=== PATIENT | female | born 1970 | race African-American/Black ===

== ENCOUNTER 2016-12-22 11:19 | Emergency (ER) | payer BC ==
[2016-12-22] MEDS ORDERED: KETOROLAC TROMETHAMINE 60 MG/2 ML SDV IM ONE (11:39)
[2016-12-22] MEDS ORDERED: HYDROCODONE/ACETAMINOPHEN 5-325 MG TABLET PO ONE (11:39)
[2016-12-22] MEDS ORDERED: ONDANSETRON 4 MG TAB.RAPDIS PO ONE (11:40)
[2016-12-22] MEDS ORDERED: KETOROLAC TROMETHAMINE INJ/PF 30 MG/1 ML SDV IV ONE (11:41)
[2016-12-22] MEDS ORDERED: MORPHINE SULFATE 10 MG/ML INJ IV ONE (11:41)
[2016-12-22] MEDS ORDERED: NORMAL SALINE 1000 ML 1,000 ML IV ONE (11:42)
--- NOTE | 2016-12-22 11:43 | ER Document Report ---
ED Medical Screen (RME) - General Chief Complaint: Possible Kidney Stone Stated Complaint: R SIDE PAIN Time Seen by Provider: 12/22/16 11:35 - HPI Patient complains to provider of: Flank pain this morning - Related Data Allergies/Adverse Reactions: No Known Allergies Allergy (Unverified 12/22/16 11:23) Past Medical History Renal/ Medical History: Denies: Hx Peritoneal Dialysis Review of Systems - Review of Systems Genitourinary: Flank pain Physical Exam - Vital signs Vitals: Temp Pulse Resp BP Pulse Ox 97.9 F 75 16 132/93 H 100 12/22/16 11:23 12/22/16 11:23 12/22/16 11:23 12/22/16 11:23 12/22/16 11:23 - Abdominal Inspection: Normal Bowel sounds: Normal Tenderness: Nontender Course - Vital Signs Vital signs: Temp Pulse Resp BP Pulse Ox 97.9 F 75 16 132/93 H 100 12/22/16 11:23 12/22/16 11:23 12/22/16 11:23 12/22/16 11:23 12/22/16 11:23
[2016-12-22 11:52] LABS: APPEARANCE,URINE SLIGHTLY-CLOUDY; BILIRUBIN,URINE NEGATIVE (NEGATIVE); GLUCOSE, URINE NEGATIVE (NEGATIVE); KETONES,URINE NEGATIVE (NEGATIVE); LEUKOCYTE ESTERASE,URINE NEGATIVE (NEGATIVE); NITRITE,URINE NEGATIVE (NEGATIVE); PROTEIN,URINE NEGATIVE (NEGATIVE); UROBILINOGEN,URINE NEGATIVE mg/dL (<2.0)
[2016-12-22 11:59] LABS: RBC,URINE 30-50 /HPF
--- NOTE | 2016-12-22 12:15 | ER Document Report ---
ED GI/ - General Mode of Arrival: Ambulatory Information source: Patient <ROBER CLAYTON - Last Filed: 12/22/16 12:57> <GAUTAM CASSIDY - Last Filed: 12/22/16 13:26> - General Chief Complaint: Possible Kidney Stone Stated Complaint: R SIDE PAIN Time Seen by Provider: 12/22/16 11:35 Notes: Patient is a 46-year-old female who presents to the emergency department today with complaints of right-sided abdominal pain. Patient describes the pain as consistently dull with sharp pains intermittently. Patient states the sharp pains are rather painful stating that "it was enough to make her leave taoism". Patient states she has never had a kidney stone before. Patient denies any vomiting. (FORREST,ROBER) - Related Data Allergies/Adverse Reactions: No Known Allergies Allergy (Unverified 12/22/16 11:23) Past Medical History - General Information source: Patient - Social History Smoking Status: Never Smoker Cigarette use (# per day): No Frequency of alcohol use: None Drug Abuse: None Lives with: Family Family History: Reviewed & Not Pertinent Patient has suicidal ideation: No Patient has homicidal ideation: No - Medical History Medical History: Negative Past Surgical History: Reports: Hx Cholecystectomy, Hx Hysterectomy - partial <ROBER CLAYTON - Last Filed: 12/22/16 12:57> Review of Systems - Review of Systems Constitutional: No symptoms reported EENT: No symptoms reported Cardiovascular: No symptoms reported Respiratory: No symptoms reported Gastrointestinal: Abdominal pain. denies: Vomiting Genitourinary: No symptoms reported Female Genitourinary: No symptoms reported Musculoskeletal: No symptoms reported Skin: No symptoms reported Hematologic/Lymphatic: No symptoms reported Neurological/Psychological: No symptoms reported -: Yes All other systems reviewed and negative <ROBER CLAYTON - Last Filed: 12/22/16 12:57> Physical Exam - Vital signs Interpretation: Normal - General General appearance: Appears well, Alert - HEENT Head: Normocephalic, Atraumatic Eyes: Normal Pupils: PERRL - Respiratory Respiratory status: No respiratory distress Chest status: Nontender Breath sounds: Normal Chest palpation: Normal - Cardiovascular Rhythm: Regular Heart sounds: Normal auscultation Murmur: No - Abdominal Inspection: Normal Distension: No distension Bowel sounds: Normal Tenderness: Tender - Right-sided tenderness to palpation, mild. No: Guarding, Rebound Organomegaly: No organomegaly - Back Back: Normal, Nontender - Extremities General upper extremity: Normal inspection, Nontender, Normal color, Normal ROM , Normal temperature General lower extremity: Normal inspection, Nontender, Normal color, Normal ROM , Normal temperature, Normal weight bearing. No: Medhat's sign - Neurological Neuro grossly intact: Yes Cognition: Normal Orientation: AAOx4 Lorna Coma Scale Eye Opening: Spontaneous Lorna Coma Scale Verbal: Oriented Lorna Coma Scale Motor: Obeys Commands [place] Coma Scale Total: 15 Speech: Normal Motor strength normal: LUE, RUE, LLE, RLE Sensory: Normal - Psychological Associated symptoms: Normal affect, Normal mood - Skin Skin Temperature: Warm Skin Moisture: Dry Skin Color: Normal <GAUTAM CASSIDY - Last Filed: 12/22/16 13:26> - Vital signs Vitals: Temp Pulse Resp BP Pulse Ox 97.9 F 75 16 132/93 H 100 12/22/16 11:23 12/22/16 11:23 12/22/16 11:23 12/22/16 11:23 12/22/16 11:23 Course - Laboratory Result Diagrams: 12/22/16 12:00 12/22/16 12:00 <ROBER CLAYTON - Last Filed: 12/22/16 12:57> - Laboratory Result Diagrams: 12/22/16 12:00 12/22/16 12:00 - Diagnostic Test Radiology reviewed: Reports reviewed <GAUTAM CASSIDY - Last Filed: 12/22/16 13:26> - Re-evaluation Re-evalutation: 12/22/16 13:25 Patient with small UVJ stone on CT. History is consistent with ureteral calculus. Patient will be discharged home with pain medication, nausea medication, and Flomax. No evidence for infection. Return if any worsening or concerning symptoms. Understands and agrees with plan. Stable for discharge. ( GAUTAM CASSIDY) - Vital Signs Vital signs: Temp Pulse Resp BP Pulse Ox 97.9 F 64 17 127/79 H 99 12/22/16 11:23 12/22/16 13:23 12/22/16 13:23 12/22/16 13:23 12/22/16 13:23 - Laboratory Laboratory results interpreted by me: 12/22/16 12/22/16 12/22/16 11:23 12:00 12:00 RBC 5.50 H MCV 78 L MCH 24.6 L MCHC 31.3 L RDW 15.5 H Chloride 109 H Urine Blood LARGE H Discharge <ROBER CLAYTON - Last Filed: 12/22/16 12:57> <GAUTAM CASSIDY - Last Filed: 12/22/16 13:26> - Discharge Clinical Impression: Ureteral stone Condition: Stable Disposition: HOME, SELF-CARE Instructions: Kidney Stone ([facility]) Prescriptions: Ondansetron [Zofran Odt 4 mg Tablet] 1 tab PO Q6HP PRN #15 tab.rapdis PRN Reason: For Nausea/Vomiting Oxycodone HCl/Acetaminophen [Percocet 5-325 mg Tablet] 1 - 2 tab PO Q4H PRN #15 tablet PRN Reason: Tamsulosin HCl [Flomax 0.4 mg Cap.sr] 0.4 mg PO DAILY #14 cap.sr.24h Referrals: SHANNAN FERRIS MD [Primary Care Provider] - Follow up as needed Scribe Attestation: 12/22/16 13:26 I personally performed the services described in the documentation, reviewed and edited the documentation which was dictated to the scribe in my presence, and it accurately records my words and actions. (GAUTAM CASSIDY)
--- NOTE | 2016-12-22 12:25 | RADIOLOGY REPORT (SQ) ---
EXAM DESCRIPTION: CT LTD RENAL STONE PROTOCOL ON COMPLETED DATE/TIME: 12/22/2016 11:58 am REASON FOR STUDY: right flank COMPARISON: None. TECHNIQUE: CT scan of the abdomen and pelvis performed without intravenous or oral contrast. Images reviewed with lung, soft tissue, and bone windows. Reconstructed coronal and sagittal MPR images revi ewed. All images stored on PACS. All CT scanners at this facility use dose modulation, iterative reconstruction, and/or weight based d osing when appropriate to reduce radiation dose to as low as reasonably achievable (ALARA). [facility]: Dose Right [facility]: CareDose [facility]: Dose Right [facility]: Teradose 4D [facility]: [employer] RADIATION DOSE: Up-to-date CT equipment and radiation dose reduction techniques were employed. CTDIv ol: 19.0 mGy. DLP: 1016 mGy-cm.mGy. LIMITATIONS: None. FINDINGS: LOWER CHEST: No significant findings. No nodules or infiltrates. NON-CONTRASTED LIVER, SPLEEN, ADRENALS: Evaluation limited by lack of IV contrast. No identified sign ificant masses. PANCREAS: No masses. No peripancreatic inflammatory changes. GALLBLADDER: Surgically absent. RIGHT KIDNEY AND URETER: No masses. Mild renal edema. 2.8 mm calculus at the UV junction. Mild pr oximal hydro nephrosis and hydroureter. No hydronephrosis or hydroureter. LEFT KIDNEY AND URETER: No suspicious masses. Assessment limited by lack of IV contrast. No signifi cant calcifications. No hydronephrosis or hydroureter. AORTA AND RETROPERITONEUM: No aneurysm. No retroperitoneal masses or adenopathy. BOWEL AND PERITONEAL CAVITY: No obvious masses or inflammatory changes. No free fluid. APPENDIX: Normal. PELVIS, BLADDER, AND ABDOMINAL WALL:No abnormal masses. No free fluid. Bladder normal. BONES: No significant findings. OTHER: No other significant finding. IMPRESSION: 2.8 mm calculus at the UV junction on the right with mild obstructive changes. TECHNICAL DOCUMENTATION: JOB ID: [id number] Quality ID # [id number]: Final reports with documentation of one or more dose reduction techniques (e.g., Au tomated exposure control, adjustment of the mA and/or kV according to patient size, use of iterative reconstruction technique) 2010 [employer] All Rights Reserved
[2016-12-22 12:27] LABS: ABSOLUTE EOSINOPHILS # (AUTO) 0.1 10^3/uL (0.0-0.6); ABSOLUTE LYMPHOCYTES (AUTO) 1.6 10^3/uL (0.5-4.7); ABSOLUTE MONOCYTES (AUTO) 0.3 10^3/uL (0.1-1.4); ABSOLUTE NEUT (AUTO) 3.6 10^3/uL (1.7-8.2); BASOPHILS % (AUTO) 0.5 % (0-2); EOSINOPHILS % (AUTO) 1.5 % (0-6); HEMATOCRIT 43.1 % (36.0-47.0); HEMOGLOBIN 13.5 g/dL (12.0-15.5); HGB HCT DIFFERENCE -2.6; LYMPHOCYTES % (AUTO) 28.9 % (13-45); MEAN CORPUSCULAR HEMOGLOBIN 24.6 pg (27.0-33.4); MEAN CORPUSCULAR HGB CONC 31.3 g/dL (32.0-36.0); MEAN CORPUSCULAR VOLUME 78 fl (80-97); MONOCYTES % (AUTO) 6.2 % (3-13); RED CELL DISTRIBUTION WIDTH 15.5 % (11.5-14.0); SEGMENTED NEUTROPHILS % (AUTO) 62.9 % (42-78); WHITE BLOOD COUNT 5.6 10^3/uL (4.0-10.5)
[2016-12-22] MEDS ORDERED: AMOXICILLIN TR/POT CLAVULANATE 500-125 MG TAB PO ONE (12:40)
[2016-12-22] MEDS ORDERED: HYDROCODONE/ACETAMINOPHEN 5-325 MG 6 TAB/DSPK PO PRN (12:40)
[2016-12-22] MEDS ORDERED: NITROFURANTOIN MONOHYD/M-CRYST 100 MG CAPSULE PO ONE (12:40)
[2016-12-22 12:43] LABS: ANION GAP 10 (5-19); BLOOD UREA NITROGEN 12 mg/dL (7-20); CALCIUM 9.5 mg/dL (8.4-10.2); CARBON DIOXIDE 22 mmol/L (22-30); CHLORIDE 109 mmol/L (98-107); CREATININE RESULT 0.82 mg/dL (0.52-1.25); GLUCOSE 99 mg/dL (75-110); POTASSIUM 4.2 mmol/L (3.6-5.0); SODIUM 141.1 mmol/L (137-145)
[2016-12-22] MEDS ORDERED: TAMSULOSIN HCL 0.4 MG CAP.SR.24H PO ONE (12:54)
[2016-12-22 13:24] VITALS: BP 127/79
== END 2016-12-22 13:23 | disposition home or self-care (01) ==
LOC: ER 11:19
DX: N20.1 Calculus of ureter (principal); R10.9 Unspecified abdominal pain; Z90.49 Acquired absence of other specified parts of digestive tract; Z90.711 Acquired absence of uterus with remaining cervical stump
CPT/HCPCS: 99284; 96374; 96375; 36415; 85025; 80048; 81001; 76380; S0119; J1885; J2270; J7030